=== PATIENT | female | born 1965 | race Caucasian/White ===

== ENCOUNTER → 2016-06-30 | Outpatient (CLI) | payer OTHER | LOC: MC.RAD 08:20 | DX: Z12.31 Encounter for screening mammogram for malignant neoplasm of breast (principal) ==

== ENCOUNTER → 2018-07-06 | Outpatient (CLI) | payer BC, OTHER | LOC: MC.RAD 10:29 | DX: Z12.31 Encounter for screening mammogram for malignant neoplasm of breast (principal); N64.89 Other specified disorders of breast ==

== ENCOUNTER → 2018-07-11 | Outpatient (CLI) | payer BC, OTHER | LOC: MC.RAD 07:15 | DX: N60.01 Solitary cyst of right breast (principal); N60.02 Solitary cyst of left breast; N64.89 Other specified disorders of breast ==

== ENCOUNTER → 2019-08-05 | Outpatient (CLI) | payer BC, OTHER | LOC: MC.RAD 12:50 | DX: Z12.31 Encounter for screening mammogram for malignant neoplasm of breast (principal) ==

== ENCOUNTER → 2020-08-06 | Outpatient (CLI) | payer BC, OTHER | LOC: MC.RAD 08:42 | DX: Z12.31 Encounter for screening mammogram for malignant neoplasm of breast (principal) ==

== ENCOUNTER → 2021-08-16 | Outpatient (CLI) | payer BC, OTHER | LOC: MC.RAD 07:54 | DX: Z12.31 Encounter for screening mammogram for malignant neoplasm of breast (principal) ==

== ENCOUNTER → 2023-09-29 | Outpatient (CLI) | payer BC | LOC: MC.RAD 07:22 | DX: Z12.31 Encounter for screening mammogram for malignant neoplasm of breast (principal) ==